=== PATIENT | male | born 1970 | race Caucasian/White ===

== ENCOUNTER 2023-03-11 21:01 | Emergency (ER) | payer OTHER | END 2023-03-11 23:00 | LOC: NAV ERS 21:01 | DX: S62.637A Displaced fracture of distal phalanx of left little finger, initial encounter for closed fracture (principal); I10 Essential (primary) hypertension; X58.XXXA Exposure to other specified factors, initial encounter ==

== ENCOUNTER 2023-08-07 02:39 | Emergency (ER) | payer OTHER ==
[2023-08-07 03:04] LABS: #Lymphocytes 0.6 thou/uL (1.20-3.40); #Monocytes 0.6 thou/uL (0.11-0.59); #Neutrophils 9.9 thou/uL (1.40-6.50); %Basophils 0.4 % (0.0-1.0); %Eosinophils 0.2 % (0.0-10.0); %Lymphocytes 5.2 % (21.0-51.0); %Monocytes 5.4 % (0.0-10.0); %Neutrophils 88.8 % (42.0-75.0); Hematocrit 46.8 % (42.0-52.0); Hemoglobin 15.8 g/dL (14.0-18.0); Mean Corpuscular HGB CONC 33.8 g/dL (32.0-36.0); Mean Corpuscular Hemoglobin 28.4 pg (27.0-31.0); Mean Corpuscular Volume 83.9 fl (78.0-98.0); Mean Platelet Volume 7.4 fL (7.4-10.4); Platelet Count 237 10x3/uL (130-400); RBC Distribution Width 11.6 % (11.5-14.5); Red Blood Cell (RBC) Count 5.58 mill/uL (4.70-6.10); White Blood Cell (WBC) Count 11.2 10x3/uL (4.8-10.8)
[2023-08-07] MEDS ORDERED: Sodium Chloride 0.9% 1,000 ML ONE (03:06)
[2023-08-07] MEDS ORDERED: Boostrix 0.5 ML (Tdap) VIAL (>/=7 yrs of age) ONE (03:06)
[2023-08-07 03:18] LABS: ALT (SGPT) 19 U/L (8-55); AST (SGOT) 23 U/L (5-34); Albumin 4.9 g/dL (3.5-5.0); Alkaline Phosphatase 46 U/L (40-110); Anion Gap 20 mmol/L (10-20); BUN (Urea Nitrogen) 9 mg/dL (8.4-25.7); Bilirubin, Total 0.6 mg/dL (0.2-1.2); Calc. Creatinine Clearance 0 mL/min (70-130); Calcium 9.1 mg/dL (7.8-10.44); Carbon Dioxide 14 mmol/L (22-29); Chloride 99 mmol/L (98-107); Estimated GFR 102; Globulin 2.2 g/dL (2.4-3.5); Glucose 142 mg/dL (70-105); Potassium 3.9 mmol/L (3.5-5.1); Protein, Total 7.1 g/dL (6.0-8.3); Sodium 129 mmol/L (136-145)
[2023-08-07 03:43] LABS: Troponin I Less than 0.010 ng/mL (< 0.028)
[2023-08-07 03:45] LABS: Base Excess-Venous -3.4 mmol/L (-2.0 to 3.0); Bicarbonate (HCO3v) 20.3 mmol/L (22.0-28.0); CO2 Tension (PvCO2) 31.6 mmHg (42.0-51.0); Chloride 95 mmol/L (98-107); Hemoglobin - Calc 13.4 g/dL (14.0-18.0); Potassium 3.7 mmol/L (3.5-5.1); Sodium 133 mmol/L (138-145); vO2 Saturation-calc 81.3 % (60.0-85.0)
[2023-08-07 03:46] LABS: Calcium, Ionized 1.05 mmol/L (1.15-1.33); T. Carbon Dioxide 21.2 mmol/L (22.0-28.0)
[2023-08-07 03:46] LABS: SARS-CoV-2 NAA Rapid Test Not Detected (NotDetected)
[2023-08-07] MEDS ORDERED: diphenhydrAMINE 25 MG CAP ONE (04:07)
[2023-08-07 04:16] LABS: Bilirubin Negative (Negative); Blood, Urine Trace (Negative); Clarity Clear (Clear); Glucose, Urine (Dipstick) Negative (Negative); Ketone, Urine Negative (Negative); Leukocyte Negative (Negative); Nitrite Negative (Negative); Protein, Urine (Dipstick) 100 mg/dL (Neg-Trace); Specific Gravity, Urine 1.025 (1.005-1.030); Urobilinogen 0.2 mg/dL (Less than 2)
[2023-08-07 04:20] LABS: Bacteria/HPF Rare-Few HPF (None Seen); CAUTI Indications for Culture Alt mental st,lethar; RBC/HPF 0-3 HPF (0-3)
[2023-08-07 04:21] LABS: Mucous/LPF 1+ LPF (<2+); Sperm/HPF 2+ HPF (None Seen)
[2023-08-07 04:22] LABS: Urine Culture Reflex No No
[2023-08-07 04:25] LABS: Amphetamine Not Detected (NotDetected); Barbiturates Screen Not Detected (NotDetected); Benzodiazepine Screen Not Detected (NotDetected); Cocaine Metabolite Screen Not Detected (NotDetected); Methadone Not Detected (NotDetected); Methamphetamine Not Detected (NotDetected); Opiate Screen Not Detected (NotDetected); Oxycodone Screen Not Detected (NotDetected); Phencyclidine (PCP) Not Detected (NotDetected); THC/Cannabinoid Screen Not Detected (NotDetected); Tricyclic Screen Not Detected (NotDetected)
[2023-08-07 06:21] LABS: Anion Gap 13 mmol/L (10-20); BUN (Urea Nitrogen) 8 mg/dL (8.4-25.7); Calc. Creatinine Clearance 0 mL/min (70-130); Calcium 8.4 mg/dL (7.8-10.44); Carbon Dioxide 18 mmol/L (22-29); Chloride 101 mmol/L (98-107); Estimated GFR 107; Glucose 81 mg/dL (70-105); Potassium 3.4 mmol/L (3.5-5.1); Sodium 129 mmol/L (136-145)
[2023-08-07 06:24] LABS: Troponin I Less than 0.010 ng/mL (< 0.028)
[2023-08-07 12:08] LABS: Hemoglobin A1c 4.9 % (4.0-6.0)
== END 2023-08-07 06:53 ==
LOC: EEVIPCON 02:39 → NAV ERS 02:39
DX: S06.9X2A Unspecified intracranial injury with loss of consciousness of 31 minutes to 59 minutes, initial encounter (principal); S00.83XA Contusion of other part of head, initial encounter; G40.409 Other generalized epilepsy and epileptic syndromes, not intractable, without status epilepticus; E87.1 Hypo-osmolality and hyponatremia; I10 Essential (primary) hypertension; M19.90 Unspecified osteoarthritis, unspecified site; W18.09XA Striking against other object with subsequent fall, initial encounter; Y93.89 Activity, other specified; Y92.000 Kitchen of unspecified non-institutional (private) residence as the place of occurrence of the external cause; Z23 Encounter for immunization; Z20.822 Contact with and (suspected) exposure to COVID-19; Z79.899 Other long term (current) drug therapy
CPT/HCPCS: 36415; 70450; 71045; 80053; 80306; 81001; 82140; 82330; 82803; 83036; 84443; 84484; 85025; 87804; 90471; 90715; 93005; J7050; U0002